=== PATIENT | female | born 1975 | race Caucasian/White ===

== ENCOUNTER 2022-04-17 07:50 | Emergency (ER) | payer MEDICAID ==
[~2022-04-17] VITALS: Ht 154.9 cm; Wt 89.0 kg
[2022-04-17 07:57] VITALS: BP 160/85
[2022-04-17] MEDS ORDERED: ACETAMINOPHEN 325MG TABLET PO STA (08:10)
[2022-04-17 09:45] LABS: CHLORIDE 108 mEq/L (98-107)
[2022-04-17 09:53] LABS: ETHANOL BLOOD 45 mg/dL
[2022-04-17 09:55] LABS: BASOPHILS % 0.6 % (0.0-2.0); EOSINOPHILS % 1.3 % (0.0-5.0); HEMATOCRIT. 39.3 % (36.0-48.0); HEMOGLOBIN. 12.6 g/dL (12.0-16.0); LYMPHOCYTES % 14.4 % (20.0-50.0); MEAN CORPUSCULAR HEMOGLOBIN 26.1 pg (28.0-32.0); MEAN CORPUSCULAR VOLUME 81.3 fL (81.0-99.0); MEAN PLATELET VOLUME 8.9 fl (7.4-10.4); MONOCYTES % 5.2 % (2.0-8.0); NEUTROPHILS % 78.5 % (40.0-76.0); PLATELET 370 x1000/uL (130-400); RED BLOOD CELL COUNT 4.84 mill/uL (4.2-5.4); RED CELL DISTRIBUTION WIDTH 18.3 % (11.6-14.6)
[2022-04-17] MEDS ORDERED: ACETAMINOPHEN 325MG TABLET PO NR (11:30)
== END 2022-04-17 12:58 | disposition home or self-care (01) ==
LOC: ER 07:50 → EDBD 07:50 → ER 12:58
DX: F19.10 Other psychoactive substance abuse, uncomplicated (principal); M54.2 Cervicalgia; F12.10 Cannabis abuse, uncomplicated; F17.200 Nicotine dependence, unspecified, uncomplicated; W01.0XXA Fall on same level from slipping, tripping and stumbling without subsequent striking against object, initial encounter; Y93.89 Activity, other specified; Y92.89 Other specified places as the place of occurrence of the external cause; Y99.8 Other external cause status
CPT/HCPCS: 36415; 71045; 73562; 80053; 80320; 85025; 99285; G0480

== ENCOUNTER 2024-12-14 20:37 | Emergency (ER) | payer MEDICAID ==
[~2024-12-14] VITALS: Ht 167.6 cm; Wt 66.0 kg
[2024-12-14 20:39] VITALS: BP 112/77; PULSE 108; RESP 18; TEMP 37.2; O2SAT 95
[2024-12-14] MEDS ORDERED: FAMOTIDINE 20MG/2ML VIAL IV ONE (21:30)
[2024-12-14] MEDS ORDERED: KETOROLAC 15MG/ML VIAL IV ONE (21:30)
[2024-12-14] MEDS ORDERED: ONDANSETRON HCL 4MG/2ML INJ IV ONE (21:30)
[2024-12-14 21:56] LABS: BASOPHILS % 0.8 % (0.0-2.0); EOSINOPHILS % 3.4 % (0.0-5.0); HEMATOCRIT. 37.0 % (36.0-48.0); HEMOGLOBIN. 12.3 g/dL (12.0-16.0); LYMPHOCYTES % 21.9 % (20.0-50.0); MEAN PLATELET VOLUME 7.7 fl (7.4-10.4); MONOCYTES % 9.8 % (2.0-8.0); NEUTROPHILS % 64.1 % (40.0-76.0); PLATELET 321 x1000/uL (130-400); RED BLOOD CELL COUNT 3.96 mill/uL (4.2-5.4); RED CELL DISTRIBUTION WIDTH 13.3 % (11.6-14.6)
[2024-12-14 22:07] LABS: INR 0.9
[2024-12-14 22:12] LABS: CREATININE 0.8 mg/dL (0.6-1.0); UREA NITROGEN BLOOD 12 mg/dL (9-23)
[2024-12-14 22:14] LABS: ASPARTATE AMINOTRANSFERASE 34 IU/L (<34); BILIRUBIN DIRECT < 0.1 mg/dL (<=3.0); BILIRUBIN TOTAL 0.3 mg/dL (0.1-1.0); PROTEIN TOTAL 6.3 g/dL (6.0-8.3)
== END 2024-12-14 22:48 | disposition left against medical advice (07) ==
LOC: ER 20:37 → CMPBEDREQ 23:46
DX: R10.32 Left lower quadrant pain (principal); N93.9 Abnormal uterine and vaginal bleeding, unspecified; Z90.49 Acquired absence of other specified parts of digestive tract; Z79.899 Other long term (current) drug therapy
CPT/HCPCS: 36415; 80048; 80076; 83735; 85025; 99283